=== PATIENT | male | born 1940 | race Caucasian/White ===

== ENCOUNTER 2020-05-05 11:19 | Day surgery (SDC) | payer MEDICARE, BC ==
[~2020-05-05] VITALS: Ht 182.9 cm; Wt 90.9 kg
[2020-05-05 11:38] LABS: BASOPHILS 1.5 % (0-2); EOSINOPHILS 4.6 % (0-7); HEMATOCRIT 47.4 % (42.0-54.0); HEMOGLOBIN 15.8 g/dL (13.5-17.5); LYMPHOCYTES 25.6 % (15-50); MCH 30.9 pg (26.0-34.0); MCHC 33.3 g/dL (31.0-37.0); MCV 92.6 fL (80.0-100.0); MONOCYTES 7.5 % (2-11); NEUTROPHIL ABS# 3.33 10x3/uL (1.78-5.38); NEUTROPHILS 60.8 % (40-80); PLATELET COUNT 192 10x3/uL (130-400); RBC 5.12 10x6/uL (4.20-6.10); RDW 12.5 % (11.5-14.5); WBC 5.5 10x3/uL (4.8-10.8)
[2020-05-05 11:45] LABS: ANION GAP 10.4 mmol/L (8-16); CALCIUM 8.7 mg/dL (8.5-10.1); CARBON DIOXIDE 30.3 mmol/L (21.0-32.0); CREATININE - SERUM 1.2 mg/dL (0.6-1.3); POTASSIUM - SERUM 4.7 mmol/L (3.5-5.1)
[2020-05-05] MEDS ORDERED: ZOCOR10 MG PO (12:40)
[2020-05-05] MEDS ORDERED: XALATAN 0.0052.5 ML LEFT EYE (12:40)
[2020-05-05] MEDS ORDERED: TIMOPTIC 0.5 % O5 ML LEFT EYE (12:41)
[2020-05-05] MEDS ORDERED: COZAAR100 MG PO (12:41)
[2020-05-05] MEDS ORDERED: ASPIRIN81 MG PO (12:41)
[2020-05-05 12:42] VITALS: BP 154/74; Ht 182.9 cm; Wt 90.9 kg
--- NOTE | 2020-05-05 15:23 | NUR ---
1520 DR. QUIROS ROUNDS ON PT AND GIVES RESULTS. CRANBERRY JUICE SERVED.
--- NOTE | 2020-05-06 07:09 | OP ---
PATIENT NAME: ERASMO BUCHANAN MEDICAL RECORD: [id number] :44 LOCATION:D.OPS ADMISSION DATE: SURGEON: MC QUIROS MD DATE OF OPERATION: 05/05/2020 PREOPERATIVE DIAGNOSIS: Epigastric pain. POSTOPERATIVE DIAGNOSIS: Epigastric pain with moderate antral gastritis with erosions. PROCEDURE: Esophagogastroduodenoscopy with antral biopsy. SURGEON: Mc Quiros MD [facility]: None. BLOOD LOSS: Minimal. ANESTHESIA: IV sedation. COMPLICATIONS: None. The risks, possible complications, and alternatives to the procedure were explained to the patient. He elected to proceed. ENDOSCOPIC COURSE: The patient was conveyed to endoscopy suite electively on 05/05/2020. IV sedation was induced by the anesthesia staff. A bite block was inserted. The gastroscope was inserted into the mouth. It was advanced easily to the hypopharynx. The esophagus was easily intubated as were the stomach and duodenum. Upon withdrawal, retroflexed and angulus views were obtained. Antral biopsies were obtained. The endoscope was then withdrawn under direct vision. I tend to think that his symptoms are more related to gastritis than they are biliary dyskinesia. I am going to ensure that he is on either an H2 mateus or proton pump inhibitor and he has stated that these have helped in the recent past with his pain. TRANSINT:[id number] Voice Confirmation ID: [id number] DOCUMENT ID: [id number] MC QUIROS MD at [id number] CC: [id number] DICTATION DATE: 05/05/20 1516 [facility] [employer]PER: 05/05/20 2332 [facility] 05/05/20 [place] [id number]
== END 2020-05-05 15:55 | disposition home or self-care (01) ==
LOC: D.OPS 11:19
PROVIDERS: Anesthesiology; ATTEND Surgery
DX: R10.13 Epigastric pain (principal); K29.60 Other gastritis without bleeding; I10 Essential (primary) hypertension; E78.5 Hyperlipidemia, unspecified